=== PATIENT | male | born 1960 | race Two or more races ===

== ENCOUNTER 2024-12-15 09:33 | Emergency (ER) | payer OTHER ==
[~2024-12-15] VITALS: Ht 167.6 cm; Wt 95.3 kg
[2024-12-15] MEDS ORDERED: TAMSULOSIN HCL 0.4 MG CAP PO ONE (10:00)
[2024-12-15] MEDS ORDERED: ONDANSETRON HCL 2 MG/ML VIAL IV ONE (10:00)
[2024-12-15] MEDS ORDERED: KETOROLAC TROMETHAMINE 30 MG VIAL IV ONE (10:00)
[2024-12-15] MEDS ORDERED: 0.9 % SODIUM CHLORIDE 1,000 ML IV ONE (10:00)
[2024-12-15 11:48] LABS: BASO % 0.8 % (0.1-1.2); EOS # 0.41 (0.04-0.54); EOS % 8.1 % (0.7-7.0); LYMPH # 1.76 (1.18-3.74); LYMPH % 34.9 % (19.3-53.1); MEAN PLATELET VOLUME 10.40 fl (9.4-12.4); MONO # 0.42 (0.24-0.82); MONO % 8.3 % (4.7-12.5); NEUT # 2.41 (1.56-6.13); NEUT % 47.7 % (34.0-71.1); RED CELL DISTRIBUTION WIDTH 12.1 % (11.6-14.4)
[2024-12-15 11:48] LABS: URINE APPEARANCE Clear; URINE BILIRRUBIN Negative (NEGATIVE); URINE BLOOD Negative; URINE COLOR Dark Yellow; URINE GLUCOSE Negative (NEGATIVE); URINE KETONE Trace (NEGATIVE); URINE LEUKOCYTE Trace; URINE NITRATE Negative; URINE PROTEIN Negative (NEGATIVE); URINE UROBILINOGEN 0.2 E.U./dl
[2024-12-15 11:49] LABS: URINE BACTERIA 39.5 uL (0.0-1933); URINE EPITHELIAL CELLS 2.9 uL (0.0-38.8); URINE RBC 2.4 uL (0.0-20.8); URINE WBC 8.2 uL (0.0-23.2)
[2024-12-15 12:19] LABS: INR 0.94
[2024-12-15 12:24] LABS: ALT/SGPT 30 U/L (12-78); AST/SGOT 16 U/L (15-37); BILIRUBIN TOTAL 0.86 mg/dL (0.3-1.2); BUN CREA RATIO 19 (7.0-25.0); CREATININE SERUM 0.89 mg/dL (0.70-1.30); GFR 86.61; GLOBULINA 3.4 G/DL (2.4-3.5); GLUCOSE FASTING 120 mg/dL (65-100); OSMOLALITY SERUM 286 MOSM/KG (275-295)
[2024-12-15 12:25] LABS: URINE CAST 0.00 uL (0.0-1.40)
[2024-12-15] MEDS ORDERED: DICY20TA PO (16:18)
== END 2024-12-15 17:20 | disposition home or self-care (01) ==
LOC: ER 09:33
DX: K52.89 Other specified noninfective gastroenteritis and colitis (principal)